=== PATIENT | female | born 1990 ===

== ENCOUNTER 2024-06-10 11:29 | Emergency (ER) | payer OTHER ==
[2024-06-10] MEDS: LACTATED RINGERS SOLUTION 1000 ML INFUS.BAG IV ONE (12:54)
[2024-06-10 13:06] LABS: HCG,QUALITATIVE URINE Positive
[2024-06-10 13:07] LABS: BASO % 0.4 % (0-2.0); EOS % 1.9 % (0-4.5); HEMATOCRIT 36.4 % (32.4-45.2); HEMOGLOBIN 12.5 GM/dL (10.7-15.3); LYMPH % 34.5 % (8-40); MCH 30.8 pg (25.7-33.7); MCHC 34.3 g/dl (32.0-36.0); MEAN CELL VOLUME 89.8 fl (80-96); MEAN PLT VOLUME 8.2 fl (7.5-11.1); MONO % 4.3 % (3.8-10.2); NEUT % 58.9 % (42.8-82.8); PLATELET COUNT 301 10^3/uL (134-434); RBC 4.05 M/mm3 (3.60-5.2); RDW 13.3 % (11.6-15.6)
[2024-06-10 13:09] LABS: EPI CELLS >36 /uL (0-25.1); HYALINE CASTS 2 /uL (0-3.1); PH,URINE 5.5 (5.0-8.0); URINE APPEARANCE CLEAR; URINE BACTERIA 202 /uL (0-1359); URINE BILIRUBIN NEGATIVE (NEGATIVE); URINE COLOR YELLOW; URINE GLUCOSE (UA) NEGATIVE (NEGATIVE); URINE KETONE NEGATIVE (NEGATIVE); URINE LEUK ESTERASE 2+ (NEGATIVE); URINE NITRITE NEGATIVE (NEGATIVE); URINE PROTEIN NEGATIVE (NEGATIVE); URINE RBC 13 /uL (0-23.9); URINE UROBILINOGEN 0.2 mg/dL (0.2-1.0); URINE WBC 297 /uL (0-25.8)
[2024-06-10 13:26] LABS: POTASSIUM 3.8 mmol/L (3.5-5.1)
[2024-06-10 13:28] LABS: CALCIUM 9.3 mg/dL (8.5-10.1)
[2024-06-10 13:29] LABS: ALBUMIN 3.7 g/dl (3.4-5.0); BLOOD UREA NITROGEN 10.2 mg/dL (7-18)
[2024-06-10 13:32] LABS: CREATININE 0.6 mg/dL (0.55-1.3)
[2024-06-10 13:34] LABS: BILIRUBIN,TOTAL 0.4 mg/dL (0.2-1); TOT PROT 7.5 g/dl (6.4-8.2)
[2024-06-10 15:21] VITALS: BP 105/70; PULSE 91; RESP 19; TEMP 98.4; BMI 22.0
== END 2024-06-10 15:59 | disposition home or self-care (01) ==
LOC: JERFT 11:29
DX: O23.41 Unspecified infection of urinary tract in pregnancy, first trimester (principal); O98.511 Other viral diseases complicating pregnancy, first trimester; U07.1 COVID-19; O26.891 Other specified pregnancy related conditions, first trimester; R42 Dizziness and giddiness; R11.0 Nausea; Z3A.09 9 weeks gestation of pregnancy
CPT/HCPCS: 0241U-QW; 36415; 76817-TC; 80053; 81003; 84702; 84703; 85025; 86850; 86900; 86901; 87086; 93005; 93010; 99285-25

== ENCOUNTER 2024-07-31 13:20 | Emergency (ER) | payer OTHER ==
[2024-07-31 13:27] VITALS: BP 97/56; PULSE 88; RESP 18; TEMP 97.7; BMI 25.2
[2024-07-31 14:19] LABS: EPI CELLS >36 /uL (0-25.1); HYALINE CASTS 7 /uL (0-3.1); PH,URINE 6.5 (5.0-8.0); URINE APPEARANCE CLOUDY; URINE BACTERIA 86 /uL (0-1359); URINE BILIRUBIN NEGATIVE (NEGATIVE); URINE COLOR DK YELLOW; URINE GLUCOSE (UA) NEGATIVE (NEGATIVE); URINE KETONE NEGATIVE (NEGATIVE); URINE LEUK ESTERASE 2+ (NEGATIVE); URINE NITRITE NEGATIVE (NEGATIVE); URINE PROTEIN NEGATIVE (NEGATIVE); URINE RBC 15 /uL (0-23.9); URINE WBC 279 /uL (0-25.8)
[2024-07-31 14:21] LABS: YEAST NEGATIVE (NEGATIVE)
[2024-07-31] MEDS ORDERED: ACETAMINOPHEN INJECTION 100 ML ONE (14:48)
[2024-07-31 14:53] LABS: BASO % 0.5 % (0-2.0); HEMATOCRIT 32.2 % (32.4-45.2); HEMOGLOBIN 10.9 GM/dL (10.7-15.3); MCH 30.6 pg (25.7-33.7); MCHC 33.9 g/dl (32.0-36.0); MEAN CELL VOLUME 90.2 fl (80-96); MEAN PLT VOLUME 7.7 fl (7.5-11.1); NEUT % 54.5 % (42.8-82.8); PLATELET COUNT 284 10^3/uL (134-434); RBC 3.57 M/mm3 (3.60-5.2); RDW 13.9 % (11.6-15.6)
[2024-07-31] MEDS: ACETAMINOPHEN 1000 MG/100 ML BAG IVPB ONE (15:04)
[2024-07-31] MEDS: SODIUM CHLORIDE 0.9% 500 ML INFUS.BAG IV ONE (15:04)
[2024-07-31 15:18] LABS: POTASSIUM 3.7 mmol/L (3.5-5.1)
[2024-07-31 15:20] LABS: ALBUMIN 2.8 g/dl (3.4-5.0); BLOOD UREA NITROGEN 5.5 mg/dL (7-18); CALCIUM 8.6 mg/dL (8.5-10.1)
[2024-07-31 15:23] LABS: CREATININE 0.4 mg/dL (0.55-1.3)
[2024-07-31 15:25] LABS: BILIRUBIN,TOTAL 0.4 mg/dL (0.2-1); TOT PROT 6.2 g/dl (6.4-8.2)
[2024-07-31 16:14] LABS: HIV INTERPRETATION NEGATIVE (NEGATIVE)
[2024-07-31] MEDS: CEPHALEXIN 250 MG/5 ML ORAL SUSPENSION PO ONE (16:30)
[2024-07-31] MEDS ORDERED: CEPHALEXIN MONOHYDRATE 500 MG CAPSULE (UD) ONE (16:32)
[2024-07-31] MEDS: CEPHALEXIN MONOHYDRATE 500 MG CAPSULE (UD) PO ONE (16:34)
== END 2024-07-31 16:58 | disposition home or self-care (01) ==
LOC: JER 13:20
PROC: 3E033NZ Introduction of Analgesics, Hypnotics, Sedatives into Peripheral Vein, Percutaneous Approach (ICD-10-PCS; principal; 2024-07-31)
DX: O09.521 Supervision of elderly multigravida, first trimester (principal); O23.42 Unspecified infection of urinary tract in pregnancy, second trimester; Z3A.16 16 weeks gestation of pregnancy
CPT/HCPCS: 36415; 76815; 80053; 81003; 85025; 86803; 87086; 87389; 99284-25; J0131

== ENCOUNTER 2025-01-08 16:55 | Inpatient (IN) | payer OTHER ==
[2025-01-08] MEDS: LACTATED RINGERS SOLUTION 1,000 ML IV SCH (18:15)
[2025-01-08 18:48] LABS: BASO % 0.3 % (0-2.0); EOS % 0.7 % (0-4.5); HEMATOCRIT 34.4 % (32.4-45.2); HEMOGLOBIN 11.8 GM/dL (10.7-15.3); LYMPH % 30.2 % (8-40); MCH 32.2 pg (25.7-33.7); MCHC 34.2 g/dl (32.0-36.0); MEAN PLT VOLUME 8.3 fl (7.5-11.1); MONO % 4.7 % (3.8-10.2); NEUT % 64.1 % (42.8-82.8); PLATELET COUNT 296 10^3/uL (134-434); RBC 3.66 M/mm3 (3.60-5.2); RDW 13.9 % (11.6-15.6); WHITE BLOOD COUNT 7.2 K/mm3 (4.0-10.0)
[2025-01-08 18:55] LABS: INR 0.89 (0.83-1.09); PROTHROMBIN TIME (PATIENT) 9.8 SEC (9.7-13.0)
[2025-01-08 18:58] LABS: ACTIVATED PTT 27.2 SECONDS (25.2-36.5)
[2025-01-08 19:01] VITALS: BMI 25.2
[2025-01-08 19:13] LABS: POTASSIUM 3.9 mmol/L (3.5-5.1)
[2025-01-08 19:14] LABS: CALCIUM 8.9 mg/dL (8.5-10.1)
[2025-01-08 19:15] LABS: BLOOD UREA NITROGEN 6.3 mg/dL (7-18)
[2025-01-08 19:18] LABS: CREATININE 0.4 mg/dL (0.55-1.3)
[2025-01-08 20:10] LABS: HIV INTERPRETATION NEGATIVE (NEGATIVE)
[2025-01-08] MEDS ORDERED: OXYTOCIN 30 UNITS in 0.9% NS 30 UNIT/500 ML INFUS.BAG IVPB ONE (21:05)
[2025-01-08] MEDS: OXYTOCIN 30 UNITS in 0.9% NS 30 UNIT/500 ML INFUS.BAG IVPB SCH (21:15)
[2025-01-09] MEDS ORDERED: OXYTOCIN 30 UNITS in 0.9% NS 30 UNIT/500 ML INFUS.BAG IVPB SCH (09:30)
[2025-01-09] MEDS ORDERED: BUTORPHANOL TARTRATE 1 MG/ML VIAL ONE (14:02)
[2025-01-09] MEDS ORDERED: LIDOCAINE HCL 1% PRESERVATIVE FREE - 30ML VIAL ONE (14:19)
[2025-01-09] MEDS ORDERED: OXYTOCIN 20 UNITS in 0.9% NS 20 UNIT/1,000 ML INFUS.BAG IV ONE (14:19)
[2025-01-09] MEDS ORDERED: BISACODYL 10 MG SUPP.RECT RC PRN (15:15)
[2025-01-09] MEDS ORDERED: BENZOCAINE 20% 57 GM BOTTLE TP PRN (15:15)
[2025-01-09] MEDS ORDERED: BENZOCAINE 28 GM HEMORRHOIDAL OINTMENT TP PRN (15:15)
[2025-01-09] MEDS ORDERED: BUTORPHANOL TARTRATE 2 MG/ML VIAL IM PRN (15:18)
[2025-01-09] MEDS: METHYLERGONOVINE MALEATE 0.2 MG/1 ML AMP IM PRN (15:34)
[2025-01-09] MEDS: OXYTOCIN 20 UNITS in 0.9% NS 20 UNIT/1,000 ML INFUS.BAG IV SCH (15:56)
[2025-01-09] MEDS ORDERED: MISOPROSTOL 200 MCG TABLET ONE (16:17)
[2025-01-09] MEDS: MISOPROSTOL 200 MCG TABLET PV ONE (16:22)
[2025-01-09] MEDS ORDERED: WITCH HAZEL 50% (TUCKS) 40 PAD/JAR PAD TP PRN (18:59)
[2025-01-09] MEDS: IBUPROFEN 600 MG TABLET (FP) PO PRN (19:16)
[2025-01-09] MEDS: ACETAMINOPHEN 325 MG TABLET (FP) PO PRN (20:22)
[2025-01-10] MEDS: MISOPROSTOL 200 MCG TABLET PR ONE (06:58)
[2025-01-10 07:18] LABS: BASO % 0.2 % (0-2.0); EOS % 0.7 % (0-4.5); HEMATOCRIT 30.2 % (32.4-45.2); HEMOGLOBIN 10.3 GM/dL (10.7-15.3); LYMPH % 20.2 % (8-40); MCH 32.6 pg (25.7-33.7); MCHC 34.1 g/dl (32.0-36.0); MEAN CELL VOLUME 95.6 fl (80-96); MEAN PLT VOLUME 8.6 fl (7.5-11.1); MONO % 6.8 % (3.8-10.2); NEUT % 72.1 % (42.8-82.8); PLATELET COUNT 213 10^3/uL (134-434); RBC 3.16 M/mm3 (3.60-5.2); RDW 14.1 % (11.6-15.6)
[2025-01-10] MEDS ORDERED: SENNOSIDES/DOCUSATE COMBO (SENNA PLUS) TABLET (UD) PO PRN (22:00)
[2025-01-11 11:28] VITALS: BP 93/52; PULSE 64; RESP 20; TEMP 98.2
== END 2025-01-11 11:25 | disposition home or self-care (01) | DRG 560 ==
LOC: JDEL 16:55 → JLDR 17:50 → J3W 01-09 17:42
PROVIDERS: ADMIT Obstetrics & Gynecology; ATTEND Obstetrics & Gynecology
PROC: 10E0XZZ Delivery of Products of Conception, External Approach (ICD-10-PCS; principal; 2025-01-09)
DX: O80 Encounter for full-term uncomplicated delivery (principal); Z3A.39 39 weeks gestation of pregnancy; Z37.0 Single live birth
CPT/HCPCS: 36415; 59025; 59409; 80048; 85025; 85610; 85730; 86850; 86900; 86901; 87389